=== PATIENT | male | born 1985 | race Caucasian/White ===

== ENCOUNTER 2021-09-07 12:52 | Outpatient (CLI) | payer BC, SELFPAY ==
--- NOTE | 2021-09-07 | XR_ITS ---
WS: [id number] FOOT RIGHT TECHNIQUE: 3 views of the right foot CLINICAL INFORMATION: ARCH PAIN RIGHT COMPARISON: None. FINDINGS: No evidence of acute fracture or dislocation. Normal tarsal metatarsal alignment. Normal calcaneus. N ormal visualized talar dome. No acute findings. XR/XR foot RT min 3V* [id number] IMPRESSION: Normal right foot.
== END 2021-09-07 12:53 | disposition home or self-care (01) ==
LOC: RADOUTREAD 09-12 13:03
PROVIDERS: PCP Family Medicine; Visit Provider Family Medicine
DX: M79.671 Pain in right foot (principal)
CPT/HCPCS: 73630

== ENCOUNTER 2023-03-21 19:52 | Emergency (ER) | payer BC, SELFPAY ==
[2023-03-21 20:03] VITALS: BP 161/107; PULSE 98; RESP 18; TEMP 36.7; O2SAT 97; BMI 33.9
[2023-03-21 20:25] LABS: Basophils # 0.1 10^3/uL (0.0-0.1); Basophils % 0.6 %; Eosinophils # 0.3 10^3/uL (0.0-0.8); Eosinophils % 2.8 %; Hematocrit 48.6 % (37-53); Lymphocytes # 2.8 10^3/uL (0.8-4.8); Lymphocytes % 26.1 %; Mean Corpuscular HGB Conc 34.2 g/dL (30-55); Mean Corpuscular Hemoglobin 30.2 pg (27-33); Mean Corpuscular Volume 88.5 fl (82-101); Mean Platelet Volume 9.3 fL (7.4-10.4); Monocytes # 1.1 10^3/uL (0.2-0.9); Monocytes % 10.1 %; Neutrophils # 6.48 10^3/uL (1.8-7.7); Nucleated Red Blood Cells % 0 %; Platelet Count 292 10^3/cmm (157-399); Red Blood Count 5.49 10^6/uL (3.85-5.65)
--- NOTE | 2023-03-21 20:42 | ED_ITS ---
HPI - Abdominal Pain 2 General: Chief Complaint: Abdominal Pain Stated Complaint: sharp pain left side, recent divaticulitis Time Seen by Provider: 03/21/23 20:41 History of Present Illness: 37-year-old male patient comes in today with sharp abdominal pain to his left lower quadrant. Patient states he was seen on Saturday and diagnosed with diverticulitis. Patient comes in today due to persistent pain and discomfort. Patient has no prior history of diverticulitis. Patient has been a marijuana smoker. Patient denies any change in activity. Patient reports no fever, nausea vomiting, blood in vomit or stool, or constipation. Patient reports some increase in pain with deep inspiration. Patient appears nontoxic. Patient appears in no pain. Associated Symptoms: Reports constipation; Denies diarrhea, fever(s), nausea and vomiting Review of Systems 2 General: Reports: 10 or more systems reviewed and unremarkable except in HPI and below Const: Denies: fever(s) Card: Denies: chest pain Resp: Reports: pain on inspiration GI: Reports: abdominal pain and constipation; Denies: nausea, vomiting or diarrhea : Denies: difficulty urinating Skin/Breast: Denies: rash PFSH ED 2 PFSH: Social History Smoking and tobacco/nicotine status: current every day tobacco/nicotine user Alcohol intake: never Substance/Drug Use: current Physical Exam 2 Const: COMMON NORMALS: alert HENMT: COMMON NORMALS: normocephalic HEAD & SCALP: normocephalic Neck/C-Spine: COMMON NORMALS: full ROM Resp: COMMON NORMALS: normal respiratory effort and clear to auscultation bilaterally AUSCULTATION: clear to auscultation bilaterally Cardio: COMMON NORMALS: regular rate and regular rhythm RATE: regular rate RHYTHM: regular rhythm GI: COMMON NORMALS: Soft to palpation PALPATION: Yes Soft to palpation and Yes Tenderness to palpation present (GI) Details: LLQ Back/Pelvis: COMMON NORMALS: thoracic and lumbar spine normal to inspection Extremity: COMMON NORMALS: normal to inspection Neuro: SENSORIUM/ORIENTATION: Yes alert Skin: COMMON NORMALS: turgor normal GENERAL SKIN EXAM: turgor normal Course 2 Vital Signs: Vital signs: Vital Signs Temperature 98.1 F 03/21/23 20:03 Pulse Rate 98 03/21/23 20:03 Respiratory Rate 18 03/21/23 20:03 Blood Pressure 161/107 03/21/23 20:03 Pulse Oximetry 97 03/21/23 20:03 MDM - Abdominal Pain Medical Decision Making 37-year-old male patient comes in today for complaints of left lower quadrant abdominal pain. Patient also made some complaints of some pain with deep inspiration in his lungs. Patient appears nontoxic. Patient has had the pain for about 1 week now. On exam abdomen soft with some tenderness in the left lower quadrant. Lungs are clear to auscultation. Vital signs are normal except for some mild elevation of blood pressure. Differential diagnosis includes but not limited to diverticulitis, abscess, appendicitis, muscle strain, pleurisy, pneumonia. Chest x-ray was normal. CBC CMP was unremarkable. Urinalysis was clean. CT of the abdomen pelvis showed no acute inflammatory process. I believe patient probably more likely has a muscle strain to his lower abdomen causing the discomfort. Patient's lung discomfort is probably most likely due to him restarting usage of marijuana. Reviewed exam with patient with recommendations for treatment and follow-up. Patient reported understanding will follow-up with primary care for further instructions. Lab Data 03/21/23 20:17 03/21/23 20:17 Labs/Radiology: Radiology Impressions Abdomen/Pelvis CT 03/21/23 20:42 IMPRESSION: 1. No bowel obstruction or inflammatory process associated with the bowel. No diverticulosis or diverticulitis. 2. No free air or significant free fluid in the abdomen or pelvis. 3. The appendix images normally. Chest X-Ray 03/21/23 20:50 IMPRESSION: No acute findings. Laboratory Results WBC 10.80 10^3/uL (3.29-11.43) 03/21/23 20:17 RBC 5.49 10^6/uL (3.85-5.65) 03/21/23 20:17 Hgb 16.60 g/dL (11.27-16.99) 03/21/23 20:17 Hct 48.6 % (37-53) 03/21/23 20:17 MCV 88.5 fl (82-101) 03/21/23 20:17 MCH 30.2 pg (27-33) 03/21/23 20: MCHC 34.2 g/dL (30-55) 03/21/23 20:17 RDW 13.0 % (12.1-15.1) 03/21/23 20:17 Plt Count 292 10^3/cmm (157-399) 03/21/23 20:17 MPV 9.3 fL (7.4-10.4) 03/21/23 20:17 Neut % (Auto) 60.0 % 03/21/23 20:17 Lymph % (Auto) 26.1 % 03/21/23 20:17 [place] % (Auto) 10.1 % 03/21/23 20:17 Eos % (Auto) 2.8 % 03/21/23 20:17 Baso % (Auto) 0.6 % 03/21/23 20:17 Neut # (Auto) 6.48 10^3/uL (1.8-7.7) 03/21/23 20:17 Lymph # (Auto) 2.8 10^3/uL (0.8-4.8) 03/21/23 20:17 [place] # (Auto) 1.1 10^3/uL (0.2-0.9) H 03/21/23 20:17 Eos # (Auto) 0.3 10^3/uL (0.0-0.8) 03/21/23 20:17 Baso # (Auto) 0.1 10^3/uL (0.0-0.1) 03/21/23 20:17 Nucleated RBC % (auto) 0 % 03/21/23 20:17 Nucleated RBCs # 0.0 /100WBC 03/21/23 20:17 Sodium 138 mmol/L (136-145) 03/21/23 20:17 Potassium 3.9 mmol/L (3.5-5.1) 03/21/23 20:17 Chloride 100 mmol/L (98-107) 03/21/23 20:17 Carbon Dioxide 27 mmol/L (22-29) 03/21/23 20:17 Anion Gap 14.9 (5-19) 03/21/23 20:17 BUN 13 mg/dL (6-20) 03/21/23 20:17 Creatinine 1.2 mg/dL (0.7-1.2) 03/21/23 20:17 GFR Calculation 67.4 mL/min (90-130) L 03/21/23 20:17 Glucose 103 mg/dL (65-115) 03/21/23 20:17 Calculated Osmolality 286 mOsm/kg (285-295) 03/21/23 20:17 Calcium 9.7 mg/dL (8.5-10.5) 03/21/23 20:17 Total Bilirubin 0.8 mg/dL (0.15-1.2) 03/21/23 20:17 AST 27 U/L (0-40) 03/21/23 20:17 ALT 41 U/L (0-41) 03/21/23 20:17 Alkaline Phosphatase 64 U/L (40-130) 03/21/23 20:17 Total Protein 7.1 g/dL (6.6-8.7) 03/21/23 20:17 Albumin 4.4 g/dL (3.5-5.2) 03/21/23 20:17 Globulin 2.7 g/dL (1.3-4.6) 03/21/23 20:17 Lipase 32 U/L (13-60) 03/21/23 20:17 Urine Color Yellow (Yellow) 03/21/23 20:59 Urine Appearance Sl hazy (CLEAR) A 03/21/23 20:59 Urine pH 7 (5-7) 03/21/23 20:59 Ur Specific [place] 1.015 (1.005-1.030) 03/21/23 20:59 Urine Protein Neg (Negative) 03/21/23 20:59 Urine Glucose (UA) Norm (Normal) 03/21/23 20:59 Urine Ketones Negative (Negative) 03/21/23 20:59 Urine Blood Neg (Negative) 03/21/23 20:59 Urine Nitrate Negative (Negative) 03/21/23 20:59 Urine Bilirubin Neg (Negative) 03/21/23 20:59 Urine Urobilinogen Neg mg/dL (Negative) 03/21/23 20:59 Ur Leukocyte Esterase Negative (Negative) 03/21/23 20:59 Urine RBC None /hpf (0-2) 03/21/23 20:59 Urine WBC None /hpf (0-5) 03/21/23 20:59 Ur Squamous Epith Cells None /hpf (0-5) 03/21/23 20:59 Amorphous Sediment 3+ /hpf 03/21/23 20:59 Urine Bacteria 1+ /hpf (NONE) H 03/21/23 20:59 All radiology interpretation(s) finalized by discharge Discharge Plan Discharge Patient Disposition: Home Clinical Impression: Abdominal pain Qualifiers: Abdominal location: left lower quadrant Qualified Code(s): R10.32 - Left lower quadrant pain Condition: Stable Prescriptions: No Action ciprofloxacin HCl 500 mg tablet 500 mg PO BID 10 Days Qty: 20 0RF metronidazole 500 mg tablet 500 mg PO Q8H 10 Days Qty: 30 0RF Discharge Orders: Discharge ED (Routine); Ordered 03/21/23 Ordered By: Cristian Finley Referrals: Jessica Doe MD [Primary Care Provider] - Discharge Diet: Usual diet Discharge Activity: Increase activity as tolerated Patient Instructions: Abdominal Pain (ED) Activity Restrictions/Additional Instructions: Activity as tolerated. Drink plenty water and fluids. Follow-up with primary care in 2 to 3 days for recheck. Return to ED for worsening symptoms such as fever greater than 100.4, blood in vomit or stool, or new concerns. Coding Level of Care Code ED Guest Experience Manager for Marzena Olsen
--- NOTE | 2023-03-21 20:42 | CTR_ITS ---
PROCEDURE INFORMATION: Exam: CT Abdomen And Pelvis With Contrast Exam date and time: 03/21/2023 9:08 PM Age: 37 years old Clinical indication: Abdominal pain; Localized; Left upper quadrant (luq); Additional info: Left abd pain, diveritculitis R/O abscess or perforation TECHNIQUE: Imaging protocol: Computed tomography of the abdomen and pelvis with contrast. Radiation optimization: All CT scans at this facility use at least one of these dose optimization techniques: automated exposure control; mA and/or kV adjustment per patient size (includes targeted exams where dose is matched to clinical indication); or iterative reconstruction. Contrast material: OMNI 350; Contrast volume: 100 ml; Contrast route: INTRAVENOUS (IV); REPORTING DATA: Count of CT and Cardiac NM exams in prior 12 months: This patient has received 0 known CTs and 0 known cardiac nuclear medicine studies in the 12 months prior to the current study. COMPARISON: CR (CHEST, ) 03/21/2023 8:58 PM RADIATION DOSE METRICS: Total DLP (mGy-cm): 947.08 FINDINGS: Pleural spaces: Small left-sided pleural effusion. Liver: Normal. No mass. Gallbladder and bile ducts: Normal. No calcified stones. No ductal dilation. Pancreas: Normal. No ductal dilation. Spleen: Normal. No splenomegaly. Adrenal glands: Normal. No mass. Kidneys and ureters: Normal. No hydronephrosis. Stomach and bowel: Unremarkable. No obstruction. No mucosal thickening. Appendix: No evidence of appendicitis. Intraperitoneal space: Unremarkable. No free air. No significant fluid collection. Vasculature: Unremarkable. No abdominal aortic aneurysm. Lymph nodes: Unremarkable. No enlarged lymph nodes. Urinary bladder: Unremarkable as visualized. Reproductive: Unremarkable as visualized. Bones/joints: Unremarkable. No acute fracture. Soft tissues: Unremarkable. CT/CT abdomen pelvis w con* [id number] IMPRESSION: 1. No bowel obstruction or inflammatory process associated with the bowel. No diverticulosis or diverticulitis. 2. No free air or significant free fluid in the abdomen or pelvis. 3. The appendix images normally.
[2023-03-21 20:44] LABS: Alanine Aminotransferase 41 U/L (0-41); Albumin Level 4.4 g/dL (3.5-5.2); Alkaline Phosphatase 64 U/L (40-130); Anion Gap 14.9 (5-19); Aspartate Amino Transferase 27 U/L (0-40); Blood Urea Nitrogen 13 mg/dL (6-20); Calcium 9.7 mg/dL (8.5-10.5); Carbon Dioxide 27 mmol/L (22-29); Chloride 100 mmol/L (98-107); Globulin 2.7 g/dL (1.3-4.6); Glomerular Filtration Rate 67.4 mL/min (90-130); Glucose 103 mg/dL (65-115); Lipase 32 U/L (13-60); Osmolality Calculated 286 mOsm/kg (285-295); Potassium 3.9 mmol/L (3.5-5.1); Sodium 138 mmol/L (136-145); Total Bilirubin 0.8 mg/dL (0.15-1.2); Total Protein 7.1 g/dL (6.6-8.7)
--- NOTE | 2023-03-21 20:50 | XRR_ITS ---
PROCEDURE INFORMATION: Exam: XR Chest Exam date and time: 03/21/2023 8:58 PM Age: 37 years old Clinical indication: Chest wall pain; Additional info: Pain with deep inspiration TECHNIQUE: Imaging protocol: Radiologic exam of the chest. Views: 1 view. COMPARISON: No relevant prior studies available. FINDINGS: Lungs: Unremarkable. No consolidation. Pleural spaces: Unremarkable. No pleural effusion. No pneumothorax. Heart/Mediastinum: Unremarkable. No cardiomegaly. Bones/joints: Unremarkable. XR/XR chest 1V portable [id number] IMPRESSION: No acute findings.
[2023-03-21] MEDS: iohexol 350 mg/mL 500 mL Btl (per mL) IV (21:07)
[2023-03-21 21:11] LABS: Add Urine Culture? No; Add Urine Microscopic? YES; Amorphous Sediment Urine 3+ /hpf; Bacteria Urine 1+ /hpf; Bilirubin Urine Neg (Negative); Blood Urine Neg (Negative); Glucose Urine UA Norm (Normal); Ketones Urine Negative (Negative); Leukocyte Esterase Urine Negative (Negative); Nitrate Urine Negative (Negative); Protein Urine Neg (Negative); Specific Gravity, Urine 1.015 (1.005-1.030); Urine Appearance SL Hazy (CLEAR); Urine Color Yellow (Yellow); Urobilinogen Urine Neg (Negative); pH Urine 7 (5-7)
[2023-03-21 22:25] VITALS: PULSE 83; RESP 17; O2SAT 96
== END 2023-03-21 22:26 | disposition home or self-care (01) ==
PROVIDERS: Emergency Provider Nurse Practitioner Family; PCP Family Medicine
DX: R10.32 Left lower quadrant pain (principal); Z72.0 Tobacco use
CPT/HCPCS: 36415; 71045; 74177; 80053; 81001; 83690; 85025; 99285; Q9967